=== PATIENT | female | born 1990 | race Caucasian/White ===

== ENCOUNTER 2018-03-30 16:00 | Outpatient (RCR) | payer OTHER, SELFPAY | END 2018-03-30 16:01 | disposition home or self-care (01) | LOC: PT 16:00 | PROVIDERS: Family Provider Family Medicine Geriatric Medicine; PCP Family Medicine Geriatric Medicine; Visit Provider Orthopaedic Surgery Adult Reconstructive Orthopaedic Surgery | DX: M25.561 Pain in right knee (principal) | CPT/HCPCS: 97010; 97014; 97016; 97033; 97110; 97163; 97164; G0283 ==

== ENCOUNTER 2018-12-13 16:30 | Outpatient (RCR) | payer OTHER, SELFPAY | END 2018-12-13 16:35 | disposition home or self-care (01) | LOC: PT 16:30 | PROVIDERS: Referring Provider Orthopaedic Surgery; Visit Provider Orthopaedic Surgery | DX: M25.561 Pain in right knee (principal); M94.20 Chondromalacia, unspecified site | CPT/HCPCS: 97010; 97014; 97110; 97163; G0283 ==

== ENCOUNTER 2018-12-29 16:30 | Outpatient (RCR) | payer OTHER, SELFPAY | END 2018-12-29 16:35 | disposition home or self-care (01) | LOC: PT 16:30 | PROVIDERS: Visit Provider Family Medicine | DX: M54.5 Low back pain (principal) | CPT/HCPCS: 97010; 97012; 97014; 97110; 97140; 97163; 97164; G0283 ==

== ENCOUNTER 2019-04-04 11:00 | Outpatient (RCR) | payer OTHER, SELFPAY | END 2019-04-04 11:05 | disposition home or self-care (01) | LOC: PT 11:00 | PROVIDERS: PCP Family Medicine Geriatric Medicine; Visit Provider Physician Assistant | DX: M54.5 Low back pain (principal); G89.29 Other chronic pain | CPT/HCPCS: 97010; 97012; 97014; 97033; 97110; 97163; G0283 ==

== ENCOUNTER 2019-08-02 17:30 | Outpatient (RCR) | payer OTHER, SELFPAY | END 2019-08-02 17:35 | disposition home or self-care (01) | LOC: PT 17:30 | PROVIDERS: Visit Provider Orthopaedic Surgery | DX: M25.561 Pain in right knee (principal); M94.20 Chondromalacia, unspecified site | CPT/HCPCS: 97010; 97014; 97016; 97033; 97035; 97110; 97140; 97163; 97164; G0283 ==

== ENCOUNTER 2020-03-13 10:37 | Emergency (ER) | payer OTHER, SELFPAY ==
[2020-03-13 10:39] VITALS: BP 144/92; PULSE 101; RESP 16; TEMP 37.2; O2SAT 98; BMI 36.6
--- NOTE | 2020-03-13 10:57 | XR_ITS ---
PROCEDURE: XR KNEE RT 3V CLINICAL INDICATION: injury Posttraumatic pain COMPARISON: CR [id number] KNEE-3 VIEWS-RT from 12/14/2014 CR KNEE3R KNEE-3 VIEWS-RT from 03/02/2015 CR [id number] KNEE-4 OR 5 VIEWS-RT from 03/04/2016 CR [id number] KNEE-LIMITED 2 VIEWS-RT from 07/27/2016 CR [id number] XR knee RT 3V from 11/13/2017 FINDINGS: No fracture or dislocation. No lytic or blastic change. There is normal mineralization. The joint spaces are well-preserved. No significant degenerative/arthritic changes. No erosive changes evident. Other findings:There are 2 transverse lucencies involving the proximal tibia from prior surgery. IMPRESSION: No acute findings. Dictated b Cedric Gilliam MD 03/13/2020 12:33 Cedric Gilliam MD in [place] 03/13/2020 12:33
--- NOTE | 2020-03-13 11:31 | [facility].EDFALL ---
ED Disposition Clinical Impression: Sprain of knee Qualifiers: Encounter type: initial encounter Involved ligament of knee: unspecified ligament Laterality: right Qualified Code(s): S83.91XA - Sprain of unspecified site of right knee, initial encounter Disposition: Home, Self-Care Condition on Discharge: Fair Instructions: How to Prevent Falls Additional Instructions: We have done an x-ray of the knee as well as a CT of the knee and these do not show any acute findings advised also to follow-up with orthopedics in case of any concerns Referrals: PCP,No [Primary Care Provider] - Time of Disposition: 14:09 - Critical Care Critical Care Time: No Attestation: On 03/13/20, the high probability of a clinically significant, sudden or life threatening deterioration of the following system(s) required my full and direct attention, intervention and personal management. The time I documented below is in addition to time spent performing reported procedures but includes the following listed in this critical care notation. Medical Decision Making - Medical Records Medical records reviewed: Yes: I reviewed the patient's medical records. MR Comment: She states her right knee hurts she states that she was bending to fruit or nut picker something from behind the sink and fell, and twisted knee, heard a pop and was not able to move her knee conveniently after that; She is status post a recent knee surgery. We have done an x-ray of the knee as well as a CT of the knee and these do not show any acute findings patient has been given reassurance patient states that she already has an Nikunj bandage at home advised also to follow-up with orthopedics in case of any concerns - Adryan Inquiry Pt receiving controlled substance: No Vital Signs: 03/13/20 10:39 Temperature 99 F Temperature Source Oral Pulse Rate [Left Radial] 101 H Respiratory Rate 16 Blood Pressure [Right Arm] 144/92 H Blood Pressure Mean [Right Arm] 109 Blood Pressure Position [Right Arm] Sitting 02 Sat by Pulse Oximetry 98 Oxygen Delivery Method Room Air Fall HPI - General Chief Complaint: Fall Stated Complaint: ao fell hurt right knee Time Seen by Provider: 03/13/20 11:27 Mode of Arrival: Wheelchair Source of Information: Patient Limitations: No Limitations Description of Symptoms (Recalled from ER Triage Doc. by RN): to ed per pvt car with c/o rt knee pain pt states squatting down to get something under the sink and my knee gave out and I heard a pop pt c/o pain inner rt knee. - History of Present Illness HPI Narrative: She states her right knee hurts she states that she was bending to fruit or nut picker something from behind the sink and fell, and twisted knee, heard a pop and was not able to move her knee conveniently after that; She is status post a recent knee surgery MD complaint: fall Onset (ago): minute(s) Fall from: standing Fall witnessed: no Place fall occurred: home Loss of consciousness: none Prolonged down time: no Symptoms prior to fall: none Location of injury - extremities: Right: knee Severity: moderate Severity scale (1-10): 3 Quality: sharp Associated symptoms (after fall): denies - Related Data Home Medications Medication Instructions Recorded Confirmed No Known Home Medications 03/13/20 03/13/20 Allergies Allergy/AdvReac Type Severity Reaction Status Date / Time No Known Allergies Allergy Unverified 07/26/17 15:25 [facility] History - Hepatitis A Screen Drug use history?: No High risk sexual behaviors?: No History of sexually transmitted infection?: No Currently employed?: No Childcare worker?: No Do you have indoor plumbing?: Yes Do you have electricity?: Yes Attestation statement:: This patient has been screened for Hepatitis A risk factors. I have reviewed the patient's past medical history: Yes - Social History Smoking Status: Never smoker Alcohol Intake: never Occupational Status: other Housing: other ROS Obtained: Yes A
--- NOTE | 2020-03-13 11:35 | CT_ITS ---
PROCEDURE: CT KNEE RT WO CON CLINICAL HISTORY: fell, s/p recent surgery Pain with limited range of motion, recent surgery COMPARISON: CR [id number] KNEE-4 OR 5 VIEWS-RT from 03/04/2016 TECHNIQUE: Axial images obtained with sagittal and coronal reformats. All CT scans at the facility use one or more dose reduction, viz: automated exposure control, ma/kV adjustment per patient size (including targeted exams where dose is matched to indication, i.e. head), or iterative reconstruction technique. FINDINGS: There is normal alignment. No acute fracture or dislocation is evident. There has been what appears to represent prior tibial tuberosity transfer with removal of the tuberosity screws. No significant effusion is evident. The quadriceps tendon and patellar tendon appear intact. The cruciate ligaments are not well evaluated with CT but are identified and have unremarkable orientation. The patella is in satisfactory position IMPRESSION: Prior tibial tuberosity surgery otherwise negative Dictated b Cedric Gilliam MD 03/13/2020 13:09 Cedric Gilliam MD in [place] 03/13/2020 13:09
--- NOTE | 2020-03-13 11:44 | PC.NURSE ---
pt taken to CT
--- NOTE | 2020-03-13 11:55 | PC.NURSE ---
back from CT
[2020-03-13 14:07] VITALS: BP 132/85; PULSE 83; RESP 15; TEMP 36.8; O2SAT 98
[2020-03-13 14:10] VITALS: BP 132/85; PULSE 83; RESP 16; TEMP -9.4; TEMP 15; O2SAT 96
[2020-03-13 14:15] VITALS: BP 135/74; PULSE 68; RESP 16; TEMP 36.6; O2SAT 98
== END 2020-03-13 14:17 | disposition home or self-care (01) ==
PROVIDERS: Emergency Provider Emergency Medicine; PCP Physician Assistant
DX: S83.91XA Sprain of unspecified site of right knee, initial encounter (principal); X50.1XXA Overexertion from prolonged static or awkward postures, initial encounter; Y92.012 Bathroom of single-family (private) house as the place of occurrence of the external cause
CPT/HCPCS: 73562; 73700; 99282

== ENCOUNTER 2020-04-01 17:00 | Outpatient (RCR) | payer OTHER, SELFPAY | END 2020-04-01 18:02 | disposition home or self-care (01) | LOC: PT 17:00 | PROVIDERS: PCP Family Medicine Geriatric Medicine; Visit Provider Orthopaedic Surgery | DX: M25.561 Pain in right knee; Z98.890 Other specified postprocedural states | CPT/HCPCS: 97010; 97014; 97016; 97110; 97163; 97164; G0283 ==

== ENCOUNTER 2020-11-27 08:00 | Outpatient (RCR) | payer OTHER, SELFPAY | END 2020-11-27 08:05 | disposition home or self-care (01) | LOC: OT 08:00 | PROVIDERS: PCP Physician Assistant; Visit Provider Physician Assistant Surgical | DX: G56.21 Lesion of ulnar nerve, right upper limb (principal); M79.641 Pain in right hand; M25.521 Pain in right elbow | CPT/HCPCS: 97014; 97035; 97110; 97140; 97164; 97165; 97530; G0283 ==

== ENCOUNTER 2021-03-27 17:00 | Outpatient (RCR) | payer OTHER, SELFPAY | END 2021-03-27 17:05 | disposition home or self-care (01) | LOC: PT 17:00 | PROVIDERS: PCP Physician Assistant; Visit Provider Orthopaedic Surgery | DX: M70.62 Trochanteric bursitis, left hip (principal); M94.261 Chondromalacia, right knee | CPT/HCPCS: 97010; 97014; 97033; 97110; 97163; 97164; G0283 ==

== ENCOUNTER 2022-03-12 17:30 | Outpatient (RCR) | payer OTHER, SELFPAY | END 2022-03-12 17:35 | disposition home or self-care (01) | LOC: PT 17:30 | PROVIDERS: PCP Physician Assistant; Visit Provider Nurse Practitioner | DX: M54.2 Cervicalgia (principal) | CPT/HCPCS: 20560; 20561; 97010; 97014; 97110; 97163; 97164; G0283 ==

== ENCOUNTER 2024-04-06 17:00 | Outpatient (RCR) | payer BC, SELFPAY | END 2024-04-06 17:05 | disposition home or self-care (01) | LOC: PT 17:00 | PROVIDERS: Visit Provider Orthopaedic Surgery | DX: M25.561 Pain in right knee (principal); S83.411A Sprain of medial collateral ligament of right knee, initial encounter | CPT/HCPCS: 97010; 97014; 97110; 97163; 97164; 97530; G0283 ==